=== PATIENT | female | born 1980 | race Caucasian/White ===

== ENCOUNTER 2024-01-29 13:41 | Day surgery (SDC) | payer BC ==
[2024-01-29] MEDS ORDERED: Depo-Medrol 40 MG/ML IM ONE (13:42)
[2024-01-29] MEDS ORDERED: Xylocaine-Mpf 2% 5 Ml Vial IJ ONE (13:42)
[2024-01-29] MEDS ORDERED: DIPRIVAN 200 MG/20 ML IV ONE (14:36)
--- NOTE | 2024-01-29 16:32 | XRAY ---
Indication: Bilateral L4-S1 MBB. Intraoperative fluoroscopy provided for 37 seconds. 3 digital spot image submitted for interpretation demonstrates posterior needle tips projecting over the expected left and right L4-S1 nerve roots. Correlate with intraoperative findings/report.
--- NOTE | 2024-01-29 16:44 | XRAY ---
37 seconds of fluoroscopy was used in surgery for a bilateral L4-S1 MBB.
== END 2024-01-29 15:07 | disposition home or self-care (01) ==
LOC: SDC-PAIN 13:41
PROVIDERS: ATTEND Psychiatry & Neurology Pain Medicine
DX: M47.812 Spondylosis without myelopathy or radiculopathy, cervical region (principal)
CPT/HCPCS: 64493; 64494; 72020; 77002; 82947; J2704

== ENCOUNTER 2024-04-08 09:13 | Day surgery (SDC) | payer BC ==
[2024-04-08] MEDS ORDERED: BUPIVACAINE 0.5% VIAL IJ ONE (09:14)
[2024-04-08] MEDS ORDERED: methylPREDNISolone acetate IM ONE (09:14)
[2024-04-08] MEDS ORDERED: propofoL IV ONE ×2 (10:52→11:01)
--- NOTE | 2024-04-08 11:45 | XRAY ---
Indication: Bilateral L4-S1 MBB. Intraoperative fluoroscopy provided for 19 seconds. Single digital spot image submitted for interpretation demonstrates posterior needle tips projecting over the expected left and right L4-S1 nerve roots. Correlate with intraoperative findings/report.
--- NOTE | 2024-04-08 12:17 | XRAY ---
19 seconds of fluoroscopy was used in surgery for a bilateral L4-S1 MBB.
== END 2024-04-08 11:25 | disposition home or self-care (01) ==
LOC: SDC-PAIN 09:13
PROVIDERS: ATTEND Psychiatry & Neurology Pain Medicine
DX: M47.816 Spondylosis without myelopathy or radiculopathy, lumbar region (principal); R73.03 Prediabetes
CPT/HCPCS: 64493; 64494; 72020; 77002; 82947; J1010; J2704

== ENCOUNTER 2024-05-26 12:59 | Day surgery (SDC) | payer BC ==
[2024-05-26] MEDS ORDERED: Depo-Medrol 40 MG/ML IM ONE (13:00)
[2024-05-26] MEDS ORDERED: LIDOCAINE HCL 1% AMPUL 5 ML IJ ONE (13:00)
[2024-05-26] MEDS ORDERED: BUPIVACAINE 0.5% VIAL IJ ONE (13:00)
[2024-05-26] MEDS ORDERED: Lactated Ringers 500 ML IV ONE (13:16)
[2024-05-26] MEDS ORDERED: propofoL IV ONE ×2 (14:18→14:29)
--- NOTE | 2024-05-26 15:20 | XRAY ---
17 seconds of fluoroscopy was used in surgery for a right L4-S1 RFA.
--- NOTE | 2024-05-26 15:20 | XRAY ---
Indication: Right L4-S1 RFA. Intraoperative fluoroscopy provided for 17 seconds. 3 digital spot image submitted for interpretation demonstrates posterior needle tips projecting over expected right L4-S1 nerve roots. Correlate with intraoperative findings/report.
== END 2024-05-26 15:05 | disposition home or self-care (01) ==
LOC: SDC-PAIN 12:59
PROVIDERS: ATTEND Psychiatry & Neurology Pain Medicine
DX: M47.816 Spondylosis without myelopathy or radiculopathy, lumbar region (principal); M79.7 Fibromyalgia; M46.1 Sacroiliitis, not elsewhere classified; G43.709 Chronic migraine without aura, not intractable, without status migrainosus; M54.81 Occipital neuralgia
CPT/HCPCS: 64635; 64636; 72100; 77002; 82947; J2704

== ENCOUNTER 2024-05-27 09:46 | Day surgery (SDC) | payer BC ==
[2024-05-27] MEDS ORDERED: Lactated Ringers 500 ML IV ONE (09:56)
[2024-05-27] MEDS ORDERED: propofoL IV ONE ×2 (11:18→11:26)
[2024-05-27] MEDS ORDERED: Xylocaine-Mpf 2% 5 Ml Vial ONE (11:20)
--- NOTE | 2024-05-27 21:01 | XRAY ---
Indication: Left L4-S1 RFA. Intraoperative fluoroscopy provided for 21 seconds. 3 digital spot image submitted for interpretation demonstrates posterior needle tips projecting over expected left L4-S1 nerve roots. Correlate with intraoperative findings/report.
--- NOTE | 2024-05-27 21:51 | XRAY ---
21 seconds of fluoroscopy was used in surgery for a left L4-S1 RFA.
== END 2024-05-27 11:44 | disposition home or self-care (01) ==
LOC: SDC-PAIN 09:46
PROVIDERS: ATTEND Psychiatry & Neurology Pain Medicine
DX: M47.816 Spondylosis without myelopathy or radiculopathy, lumbar region (principal); R73.03 Prediabetes
CPT/HCPCS: 64635; 64636; 72100; 77002; 82947; J2704

== ENCOUNTER 2024-07-28 13:43 | Day surgery (SDC) | payer BC ==
[2024-07-28] MEDS ORDERED: Depo-Medrol 40 MG/ML IM ONE (13:44)
[2024-07-28] MEDS ORDERED: BUPIVACAINE 0.5% VIAL IJ ONE (13:44)
[2024-07-28] MEDS ORDERED: Lactated Ringers IV ONE (13:44)
[2024-07-28] MEDS ORDERED: propofoL IV ONE (15:33)
--- NOTE | 2024-07-28 16:41 | XRAY ---
Indication: Bilateral SI joint injection. Intraoperative fluoroscopy provided for 20 seconds. 2 digital spot images submitted for interpretation demonstrates posterior needle tips projecting over left and right SI joints. Small amount of contrast injected for needle tip placement. Correlate with intraoperative findings/report.
--- NOTE | 2024-07-28 17:20 | XRAY ---
20 seconds of fluoroscopy was used in surgery for a bilateral sacroiliac joint injection.
== END 2024-07-28 16:02 | disposition home or self-care (01) ==
LOC: SDC-PAIN 13:43
PROVIDERS: ATTEND Psychiatry & Neurology Pain Medicine
DX: M46.1 Sacroiliitis, not elsewhere classified (principal); R73.03 Prediabetes
CPT/HCPCS: 27096; 72202; 82947; J2704; Q9966

== ENCOUNTER 2024-12-15 09:20 | Day surgery (SDC) | payer BC ==
[2024-12-15] MEDS ORDERED: methylPREDNISolone acetate IM ONE (09:21)
[2024-12-15] MEDS ORDERED: LIDOCAINE HCL 1% 50 MG/5 ML VL IJ ONE (09:21)
[2024-12-15] MEDS ORDERED: Sodium Chloride 0.9(Preservative Free) 10 ML IJ ONE (09:21)
[2024-12-15] MEDS ORDERED: propofoL IV ONE (10:34)
[2024-12-15] MEDS ORDERED: MORPHINE SULFATE 2 MG INJ ONE ×2 (10:57→11:16)
[2024-12-15] MEDS ORDERED: Lactated Ringers 1,000 ML IV ONE (12:43)
--- NOTE | 2024-12-15 19:23 | XRAY ---
Indication: Lumbar NIALL. Intraoperative fluoroscopy provided for 10 seconds. 3 digital spot image submitted for interpretation demonstrates posterior needle tip projecting posterior to lumbosacral junction. Small amount of contrast injected through needle tip placement. Correlate with intraoperative findings/report.
--- NOTE | 2024-12-15 19:37 | XRAY ---
10 seconds of fluoroscopy was used in surgery for a lumbar NIALL.
== END 2024-12-15 11:45 | disposition home or self-care (01) ==
LOC: SDC-PAIN 09:20
PROVIDERS: ATTEND Psychiatry & Neurology Pain Medicine
DX: M54.16 Radiculopathy, lumbar region (principal); R73.03 Prediabetes